=== PATIENT | female | born 1990 | race African-American/Black ===

== ENCOUNTER 2019-02-11 09:14 | Emergency (ER) | payer OTHER ==
[2019-02-11] MEDS ORDERED: LORazepam 2 MG/ML VIAL ONE (09:23)
[2019-02-11] MEDS ORDERED: KETAMINE HCL 500 MG/5 ML VIAL ONE (09:27)
[2019-02-11 10:01] LABS: Absolute Lymphocytes (CBC) 3.1 K/uL (0.7-4.9); Basophils % 0.3 % (0-1.3); Hematocrit 39.1 % (36.0-45.0); MPV 7.8 fL (7.6-11.3)
[2019-02-11 10:05] LABS: Protime INR 1.1
[2019-02-11 10:35] LABS: ALT/SGPT 13 U/L (12-78); AST/SGOT 12 U/L (15-37); Albumin 4.2 g/dL (3.4-5.0); Alkaline Phosphatase 55 U/L (45-117); BUN Blood Urea Nitrogen 14 mg/dL (7-18); Bicarbonate 23 mmol/L (21-32); Bilirubin Direct 0.2 mg/dL (0-0.2); Bilirubin Total 0.5 mg/dL (0.2-1.0); Glucose Level 89 mg/dL (74-106); Potassium 4.1 mmol/L (3.5-5.1); Sodium Level 148 mmol/L (136-145)
[2019-02-11] MEDS ORDERED: NA CHLORIDE 0.9% 2,000 ML ONE (11:36)
[2019-02-11 11:38] LABS: Urine Blood TRACE (NEG); Urine Glucose NEGATIVE (NEG); Urine Protein 2+ (NEG); Urine Specific Gravity 1.025 (1.005-1.030)
[2019-02-11 11:46] LABS: Barbiturates NEGATIVE (NEGATIVE); Benzodiazepines POSITIVE (NEGATIVE); Cocaine NEGATIVE (NEGATIVE); METHAMPHETAM NEGATIVE (NEGATIVE); Methadone NEGATIVE (NEGATIVE); Opiates NEGATIVE (NEGATIVE); Phencyclidine NEGATIVE (NEGATIVE); THC Cannibis POSITIVE (NEGATIVE)
--- NOTE | 2019-02-11 15:29 | ER ---
Nurse's Notes [facility] Name: Gerardo Bey Age: 28 yrs Sex: Female : 1990 Arrival Date: 02/11/2019 Time: 09:24 Bed 7 Private MD: Diagnosis: Suicidal ideations;Bipolar disorder Presentation: 02/11 09:24 Presenting complaint: EMS states: Pt took handful of Vicodin, boyfriend tried to get jl7 her to throw up but was unable to, pt was combative on scene, given 2 mg Versed IM and 3 mg Versed IVP. 09:24 Transition of care: patient was not received from another setting of care. Onset of jl7 symptoms was February 11, 2019 at 08:15. Risk Assessment: Do you want to hurt yourself or someone else? Patient reports desire/thoughts of hurting themselves or someone else. Provider notified. Initial Sepsis Screen: Does the patient meet any 2 criteria? No. Patient's initial sepsis screen is negative. Does the patient have a suspected source of infection? No. Patient's initial sepsis screen is negative. Care prior to arrival: Restraints applied. Medication(s) given: 5 mg Versed IV initiated. 18 GA, in the left antecubital area, Restraints applied. Care prior to arrival: IV initiated. 20 GA, in the right antecubital area. 09:24 Method Of Arrival: EMS: [place] [id number] 09:24 Acuity: KANDACE 2 jl7 Triage Assessment: 09:24 General: Appears in no apparent distress. Behavior is unresponsive. Pt sedated. Pain: jl7 Unable to use pain scale. Patient is disoriented. Neuro: Level of Consciousness is unresponsive, Oriented to none. Cardiovascular: Patient's skin is warm and dry. Respiratory: Airway is patent Respiratory effort is even, unlabored, Respiratory pattern is regular, symmetrical. Derm: Skin is pink, warm \\T\\ dry. Historical: - Allergies: 09:24 No Known Allergies; jl7 - Home Meds: 09:24 Seroquel Oral [Active]; jl7 - PMHx: 09:24 Bipolar disorder; jl7 - Immunization history:: Adult Immunizations unknown. - Social history:: Smoking status: unknown. - Ebola Screening: : No symptoms or risks identified at this time. Screenin:28 Abuse screen: Denies threats or abuse. Denies injuries from another. Nutritional iw screening: No deficits noted. Tuberculosis screening: No symptoms or risk factors identified. Fall Risk IV access (20 points). Assessment: 09:24 Reassessment: See triage assessment. jl7 09:30 Reassessment: Pt became agitated, trying to slap nurses, security at bedside, INDRA Lu and Dr. Asher at bedside, see [facility] for orders. Pt ripped out right AC IV. 09:45 Reassessment: Pt sedated, VSS, restraints removed, respirations even and unlabored. jl7 10:27 Reassessment: pt opening eyes to name, family at bedside, VSS, respirations even and iw unlabored. 11:00 Reassessment: Pt A\\T\\O x 4, cooperative, family remains at bedside. jl7 12:11 Reassessment: Anelle from Poison control reports to watch respirations and pull a 4 jl7 hour Tylenol at 1230, if level is less than 150 the pt is good to go and greater than [address]. 12:25 Reassessment: Nurse to Nurse with LUCIANA Navarro at [facility], will call back for [facility] doc-to-doc after review. 12:40 Reassessment: [place] [facility] [facility] 13:27 Reassessment: Patient appears in no apparent distress at this time. No changes from jl previously documented assessment. Patient and/or family updated on plan of care and expected duration. Pain level reassessed. Patient is alert, oriented x 3, equal unlabored respirations, skin warm/dry/pink. 14:30 Reassessment: Patient appears in no apparent distress at this time. Patient and/or jl7 family updated on plan of care and expected duration. Pain level reassessed. Patient is alert, oriented x 3, equal unlabored respirations, skin warm/dry/pink. 16:01 Reassessment: Pts family states "She's ready to go home now, she feels better." INDRA Lu at bedside discussing plan of care. Pt's family requests to speak to the ER Doctor. Dr. Asher at bedside and explained the procedures regarding attempted suicide and suicidal ideation, pt and family verbally reports understanding. 18:05 Reassessment: Pt actively vomiting, ERP notified, see MAR for orders. jl7 19:39 Reassessment: Patient appears in no apparent distress at this time. Patient calm, lp1 resting; significant other at bedside. Neuro: Oriented to person, place, time, situation. Cardiovascular: Patient's skin is warm and dry. 21:00 Reassessment: Patient appears in no apparent distress at this time. Patient resitng, lp1 eyes closed. 23:28 Reassessment: Nurse to nurse report given to LUCIANA Allen at [facility]. lp1 02/12 02:11 Reassessment: Patient updated on plan for transfer to [facility]; Patient lp1 refuses to sign consent form for transfer. 02:33 Reassessment: Mental Health officer at bedside for patient transfer. lp1 Psych: 02/11 12:13 Subjective: Patient's mood is sad, Delusions are denied, Hallucinations are auditory, jl7 visual, Having thoughts of suicide. Plan for suicide is Pt attempted to OD with Vicodin. Objective: Patient is cooperative, using poor eye contact, Speech is normal, Affect is appropriate. Interventions: Removed personal items and placed in bag. Patient placed in hospital gown. Searched person for dangerous items. Urine collected and sent for urine drug test. Suicide Risk Assessment: Sad Person Scale: Sex of patient: Female: Score 0 points. Age of patient: Score 1 point if patient 15-34. Depression: Score 1 point if signs of depression are present. Previous Attempt: Score 1 point if patient has previously attempted suicide. Substance Abuse: Score 1 point if patient abuses alcohol or drugs. Rational Thinking: Score 1 point if patient is lacking rational thinking. Social Support: Score 0 if social support is present/available. Organized Plan: Score 1 point if patient had a plan in place. Relationship: Score 0 point if patient has a spouse or domestic partner. Chronic Sickness: Score 1 point if patient has illness, chronic, debilitating, or severe. Safety Checks: Personal items have been removed. Door is open. Visitors are present. Patient uses marijuana. 12:30 Safety Checks: Personal items have been removed. Door is open. Visitors are present. jl7 12:45 Safety Checks: Personal items have been removed. Door is open. Visitors are present. jl7 13:00 Safety Checks: Personal items have been removed. Door is open. Visitors are present. jl7 13:15 Safety Checks: Personal items have been removed. Door is open. Visitors are present. jl7 13:30 Safety Checks: Personal items have been removed. Door is open. Visitors are present. jl7 13:45 Safety Checks: Personal items have been removed. Door is open. Visitors are present. jl7 14:00 Safety Checks: Personal items have been removed. Door is open. Visitors are present. jl7 14:15 Safety Checks: Personal items have been removed. Door is open. Visitors are present. jl7 14:30 Safety Checks: Personal items have been removed. Door is open. Visitors are present. jl7 14:45 Safety Checks: Personal items have been removed. Door is open. Visitors are present. jl7 15:00 Safety Checks: Personal items have been removed. Door is open. Visitors are present. jl7 15:15 Safety Checks: Personal items have been removed. Door is open. Visitors are present. jl7 15:30 Safety Checks: Personal items have been removed. Door is open. Visitors are present. jl7 15:45 Safety Checks: Personal items have been removed. Door is open. Visitors are present. jl7 16:00 Safety Checks: Personal items have been removed. Door is open. Visitors are present. jl7 16:15 Safety Checks: Personal items have been removed. Door is open. Visitors are present. jl7 16:30 Safety Checks: Personal items have been removed. Door is open. Visitors are present. jl7 16:45 Safety Checks: Personal items have been removed. Door is open. Visitors are present. jl7 Overdose: 09:24 Patient took "She took about 8 and I made her throw up right away and she threw up 6 jl7 for sure.". Overdose occurred 30 minutes to 1 hour ago. Vital Signs: 09:35 BP 102 / 35; Pulse 100; Resp 18 S; Pulse Ox 99% on R/A; iw 10:27 BP 118 / 81; Pulse 89; Resp 16; Pulse Ox 100% on R/A; Pain 0/10; iw 12:18 BP 117 / 61; Pulse 75; Resp 16 S; Pulse Ox 100% on R/A; jl7 13:26 BP 99 / 63; Pulse 74; Resp 16 S; Pulse Ox 100% on R/A; jl7 16:45 BP 111 / 67; Pulse 63; Resp 16 S; Pulse Ox 100% on R/A; jl7 19:38 Weight 49.44 kg (R); lp1 20:05 BP 113 / 73 LA Supine (auto/reg); Pulse 85 MON; Resp 18 S; Temp 98.5(O); Pulse Ox 100% ms1 on R/A; 02/12 00:01 BP 100 / 66 LA Supine (auto/reg); Pulse 58 MON; Resp 18 S; Temp 98.5(O); Pulse Ox 99% ms1 on R/A; ED Course: 02/11 09:24 Patient arrived in ED. iw 09:24 Maintain EMS IV. Dressing intact. Good blood return noted. Site clean \\T\\ dry. Gauge \\T\\ jl 7 site: 18 Left AC. 09:24 Arm band placed on right wrist. jl7 09:24 Patient has correct armband on for positive identification. Placed in gown. Bed in low jl7 position. Call light in reach. Side rails up X2. monitoring and evaluation advisor on. Pulse ox on. NIBP on. Warm blanket given. 09:29 David Sams PA is PHCP. cp 09:30 Wilmar Asher MD is Attending Physician. cp 09:40 Lab(s) recollected, by me, sent to lab. Initial lab(s) drawn, by me, sent to lab. jl7 09:40 Urine collected: straight cath specimen, clear. jl7 09:45 Straight cath inserted, using sterile technique, 16 Fr. Specimen obtained. Returned jl7 clear yellow urine. Patient tolerated Pt sedated. 09:58 Randell Sanchez, LUCIANA is Primary Nurse. jl7 10:08 EKG done, by automotive technician. reviewed by David BURRELL. at1 11:06 Triage completed. jl7 12:00 faxed patient records to the following facilities in the attempt to transfer the eb patient; [facility], [facility], [facility], [facility], [facility], [facility], [facility], [facility], [facility], [facility], and [facility] 12:35 connected the Nurse Melanie CHOWDHURY from [facility] with Randell for nurse to nurse report.eb 12:40 connected the nurse Stanley CHOWDHURY from [facility] with Randell for nurse to nurse eb report. 13:15 Chula from [facility] called to decline patient in transfer due to them eb being at capacity. 15:54 Police the [facility] called to page the [facility] on eb call. 16:09 per Amish Lizzie from [facility] patient was declined due to violent eb history. 16:13 Police [place] [employer] called due to patient attempting to leave the eb facility. 16:17 called [facility] to check on the status on the transfer/ per Xiomy if we eb could refax the patient information. She did not receive the original fax. 17:00 Safety checks: Items removed: yes. Door open/sign placed on door: yes. Family/friend dh3 present: yes. Family/friends encouraged to stay with patient. Sitter present: Yes. 17:05 Diet tray ordered. jl7 17:15 Safety checks: Items removed: yes. Door open/sign placed on door: yes. Family/friend dh3 present: yes. Family/friends encouraged to stay with patient. Sitter present: Yes. 17:30 Safety checks: Items removed: yes. Door open/sign placed on door: yes. Family/friend dh3 present: yes. Family/friends encouraged to stay with patient. Sitter present: Yes. 17:45 Safety checks: Items removed: yes. Door open/sign placed on door: yes. Family/friend dh3 present: yes. Family/friends encouraged to stay with patient. Sitter present: Yes. 18:00 Safety checks: Items removed: yes. Door open/sign placed on door: yes. Family/friend dh3 present: yes. Family/friends encouraged to stay with patient. Sitter present: Yes. 18:15 Safety checks: Items removed: yes. Door open/sign placed on door: yes. Family/friend dh3 present: yes. Family/friends encouraged to stay with patient. Sitter present: Yes. 18:30 Safety checks: Items removed: yes. Door open/sign placed on door: yes. Family/friend dh3 present: yes. Family/friends encouraged to stay with patient. Sitter present: Yes. 18:45 Safety checks: Items removed: yes. Door open/sign placed on door: yes. Family/friend dh3 present: yes. Family/friends encouraged to stay with patient. Sitter present: Yes. 19:00 Safety checks: Items removed: yes. Door open/sign placed on door: yes. Family/friend dh3 present: yes. Family/friends encouraged to stay with patient. Sitter present: Yes. 19:15 Safety Checks: Personal items have been removed. The door is open or patient has been ms1 placed in a hallway bed/chair. A family member and/or friend is present and encouraged to stay. Sitter present at this time. 19:30 Safety Checks: Personal items have been removed. The door is open or patient has been ms1 placed in a hallway bed/chair. A family member and/or friend is present and encouraged to stay. Sitter present at this time. 19:34 Primary Nurse role handed off by Randell Sanchez RN jl7 19:38 Emi Valenzuela RN is Primary Nurse. lp1 19:45 Safety Checks: Personal items have been removed. The door is open or patient has been ms1 placed in a hallway bed/chair. A family member and/or friend is present and encouraged to stay. Sitter present at this time. 20:00 Safety Checks: Personal items have been removed. The door is open or patient has been ms1 placed in a hallway bed/chair. A family member and/or friend is present and encouraged to stay. Sitter present at this time. 20:15 Safety Checks: Personal items have been removed. The door is open or patient has been ms1 placed in a hallway bed/chair. A family member and/or friend is present and encouraged to stay. Sitter present at this time. 20:30 Safety Checks: Personal items have been removed. The door is open or patient has been ms1 placed in a hallway bed/chair. A family member and/or friend is present and encouraged to stay. Sitter present at this time. 20:45 Safety Checks: Personal items have been removed. The door is open or patient has been ms1 placed in a hallway bed/chair. A family member and/or friend is present and encouraged to stay. Sitter present at this time. 21:00 Safety Checks: Personal items have been removed. The door is open or patient has been ms1 placed in a hallway bed/chair. A family member and/or friend is present and encouraged to stay. Sitter present at this time. 21:15 Safety Checks: Personal items have been removed. The door is open or patient has been ms1 placed in a hallway bed/chair. A family member and/or friend is present and encouraged to stay. Sitter present at this time. 21:30 Safety Checks: Personal items have been removed. The door is open or patient has been ms1 placed in a hallway bed/chair. A family member and/or friend is present and encouraged to stay. Sitter present at this time. 21:30 Safety Checks: Personal items have been removed. The door is open or patient has been ms1 placed in a hallway bed/chair. There are no family/friend visitors at this time Sitter present at this time. 21:45 Safety Checks: Personal items have been removed. The door is open or patient has been ms1 placed in a hallway bed/chair. A family member and/or friend is present and encouraged to stay. There are no family/friend visitors at this time Sitter present at this time. 22:00 Safety Checks: Personal items have been removed. The door is open or patient has been ms1 placed in a hallway bed/chair. There are no family/friend visitors at this time Sitter present at this time. 22:15 Safety Checks: Personal items have been removed. The door is open or patient has been ms1 placed in a hallway bed/chair. There are no family/friend visitors at this time Sitter present at this time. 22:30 Safety Checks: Personal items have been removed. The door is open or patient has been ms1 placed in a hallway bed/chair. There are no family/friend visitors at this time Sitter present at this time. 22:45 Safety Checks: Personal items have been removed. The door is open or patient has been ms1 placed in a hallway bed/chair. There are no family/friend visitors at this time Sitter present at this time. 22:48 Refaxed patient chart to all psychiatric facilities. mt 23:00 Safety Checks: Personal items have been removed. The door is open or patient has been ms1 placed in a hallway bed/chair. There are no family/friend visitors at this time Sitter present at this time. 23:15 Safety Checks: Personal items have been removed. The door is open or patient has been ms1 placed in a hallway bed/chair. There are no family/friend visitors at this time Sitter present at this time. 23:22 Nurse to hSannen Wilks. hi 23:30 Safety Checks: Personal items have been removed. The door is open or patient has been ms1 placed in a hallway bed/chair. There are no family/friend visitors at this time Sitter present at this time. 23:45 Safety Checks: Personal items have been removed. The door is open or patient has been ms1 placed in a hallway bed/chair. There are no family/friend visitors at this time Sitter present at this time. 23:49 Attending Physician role handed off by Wilmar Asher MD cha 23:49 David Tracey MD is Attending Physician. taye 23:54 Dr to Tiburcio Wilks. hi 02/12 00:00 Safety Checks: Personal items have been removed. The door is open or patient has been ms1 placed in a hallway bed/chair. There are no family/friend visitors at this time Sitter present at this time. 00:15 Safety Checks: Personal items have been removed. The door is open or patient has been ms1 placed in a hallway bed/chair. There are no family/friend visitors at this time Sitter present at this time. 00:30 Safety Checks: Personal items have been removed. The door is open or patient has been ms1 placed in a hallway bed/chair. There are no family/friend visitors at this time Sitter present at this time. 00:45 Safety Checks: Personal items have been removed. The door is open or patient has been ms1 placed in a hallway bed/chair. There are no family/friend visitors at this time Sitter present at this time. 01:00 Safety Checks: Personal items have been removed. The door is open or patient has been ms1 placed in a hallway bed/chair. There are no family/friend visitors at this time Sitter present at this time. 01:15 Safety Checks: Personal items have been removed. The door is open or patient has been ms1 placed in a hallway bed/chair. There are no family/friend visitors at this time Sitter present at this time. 01:30 Safety Checks: Personal items have been removed. The door is open or patient has been ms1 placed in a hallway bed/chair. There are no family/friend visitors at this time Sitter present at this time. 01:45 Safety Checks: Personal items have been removed. The door is open or patient has been ms1 placed in a hallway bed/chair. There are no family/friend visitors at this time Sitter present at this time. 02:00 Safety Checks: Personal items have been removed. The door is open or patient has been ms1 placed in a hallway bed/chair. There are no family/friend visitors at this time Sitter present at this time. 02:15 Safety Checks: Personal items have been removed. The door is open or patient has been ms1 placed in a hallway bed/chair. There are no family/friend visitors at this time Sitter present at this time. 02:33 IV discontinued, No redness/swelling at site. Pressure dressing applied. lp1 02:34 No provider procedures requiring assistance completed. lp1 Administered Medications: 02/11 09:25 Drug: Ativan 2 mg Route: IVP; Site: left antecubital; jl7 09:45 Follow up: Response: No adverse reaction jl7 09:30 Drug: Ketamine 100 mg Route: IVP; Site: left antecubital; jl7 09:45 Follow up: Response: No adverse reaction jl7 12:03 Drug: NS 0.9% 1000 ml Route: IV; Rate: 1 bolus; Site: left antecubital; jl7 17:04 Follow up: IV Status: Completed infusion; IV Intake: 1000ml jl7 12:03 Drug: NS 0.9% 1000 ml Route: IV; Rate: 125 ml/hr; Site: left antecubital; jl7 17:04 Follow up: IV Status: IV converted to saline lock; pt refused jl7 18:06 Drug: Phenergan 25 mg Route: IVP; Site: left antecubital; jl7 18:30 Follow up: Response: No adverse reaction; Nausea is decreased jl7 Intake: 17:04 IV: 1000ml; Total: 1000ml. jl7 Outcome: 15:28 ER care complete, transfer ordered by MD. crowe 02/12 02:34 Condition: stable lp1 Instructed on the need for transfer. 02:44 Transferred [facility]. to other acute care facility: [facility] . lp1 02:45 Patient left the ED. lp1 Signatures: David Tracey MD MD cha Williams, Irene, RN RN Emi Valenzuela RN RN lp1 Suzanne Vera, bait tier EKG Tat1 David Sams PA PA cp Leal, Jahala, RN RN jl7 [place] [id number] Patricia Luis Marchie ar1 Corrections: (The following items were deleted from the chart) 02/11 19:32 09:30 Reassessment: Pt became agitated, trying to slap nurses, security at bedside, INDRA Stanley and Dr. Asher at bedside, see MAR for orders. Pt ripped out right AC IV jl7
--- NOTE | 2019-02-11 15:30 | EDPHYS ---
Physician Documentation [facility] Name: Gerardo Bey Age: 28 yrs Sex: Female : 1990 Arrival Date: 02/11/2019 Time: 09:24 Bed 7 Private MD: ED Physician David Tracey HPI: 02/11 09:30 This 28 yrs old Black Female presents to ER via Unassigned with complaints of Possible cp Overdose. 09:30 The patient presents to the emergency department with a possible overdose, was found cp with a bottle, EMS reports family observed patient taking unknown number of hydrocodone. 09:30 Context: Method: the patient has a confirmed or suspected ingestion, of narcotics, cp Time: approximately 0830, the OD/poisoning occurred at at home, and was witnessed by family, Psychiatric history: the patient has a known psychiatric disorder, schizophrenia. Associated signs and symptoms: Pertinent positives: combativeness. Severity of symptoms: in the emergency department the symptoms have improved mildly. Unable to obtain HPI due to patient is being uncooperative. Historical: - Allergies: 09:24 No Known Allergies; jl7 - Home Meds: 09:24 Seroquel Oral [Active]; jl7 - PMHx: 09:24 Bipolar disorder; jl7 - Immunization history:: Adult Immunizations unknown. - Social history:: Smoking status: unknown. - Ebola Screening: : No symptoms or risks identified at this time. ROS: 09:35 Unable to obtain ROS due to patient being uncooperative. cp Exam: 09:40 Constitutional: The patient appears in no acute distress, alert, awake, non-toxic, well cp developed, well nourished. 09:40 Head/Face: Normocephalic, atraumatic. cp 09:40 Eyes: Periorbital structures: appear normal, Pupils: equal, round, and reactive to cp light and accomodation, Sclera: no appreciated abnormality, Lids and lashes: appear normal, bilaterally. 09:40 ENT: External ear(s): are unremarkable, Nose: is normal, Mouth: Lips: moist, Oral mucosa: moist, Posterior pharynx: Airway: no evidence of obstruction, patent. 09:40 Chest/axilla: Inspection: normal. 09:40 Cardiovascular: Rate: tachycardic, Rhythm: regular, JVD: is not appreciated. 09:40 Respiratory: the patient does not display signs of respiratory distress, Respirations: cp normal, no use of accessory muscles, no retractions, no splinting, no tachypnea, labored breathing, is not present, Breath sounds: are clear throughout, no decreased breath sounds, no stridor, no wheezing. 09:40 Abdomen/GI: Inspection: abdomen appears normal, Palpation: abdomen is soft and non-tender, in all quadrants. 09:40 Skin: no rash present. 09:40 Neuro: Orientation: to person, place \T\ time. Motor: moves all fours, strength is normal. 09:40 Psych: Behavior/mood is aggressive, uncooperative, Affect is animated, Patient having thoughts of suicide. Plan for suicide is ingestive unknown number of hydrocodone tablets Delusions/hallucinations are not present. 10:10 ECG was reviewed by the Attending Physician. Vital Signs: 09:35 BP 102 / 35; Pulse 100; Resp 18 S; Pulse Ox 99% on R/A; iw 10:27 BP 118 / 81; Pulse 89; Resp 16; Pulse Ox 100% on R/A; Pain 0/10; iw 12:18 BP 117 / 61; Pulse 75; Resp 16 S; Pulse Ox 100% on R/A; jl7 13:26 BP 99 / 63; Pulse 74; Resp 16 S; Pulse Ox 100% on R/A; jl7 16:45 BP 111 / 67; Pulse 63; Resp 16 S; Pulse Ox 100% on R/A; jl7 19:38 Weight 49.44 kg (R); lp1 20:05 BP 113 / 73 LA Supine (auto/reg); Pulse 85 MON; Resp 18 S; Temp 98.5(O); Pulse Ox 100% ms1 on R/A; 02/12 00:01 BP 100 / 66 LA Supine (auto/reg); Pulse 58 MON; Resp 18 S; Temp 98.5(O); Pulse Ox 99% ms1 on R/A; MDM: 02/11 09:32 Patient medically screened. 14:10 Data reviewed: vital signs, nurses notes, lab test result(s), EKG, I have discussed the cp patient's presentation/case with the attending Emergency Department Physician;. 23:53 Patient medically screened. [facility] 02/11 09:31 Order name: Acetaminophen; Complete Time: 11:21 cp 02/11 11:21 Interpretation: Reviewed. cp 02/11 09:31 Order name: Basic Metabolic Panel; Complete Time: 11:21 cp 02/11 11:21 Interpretation: Normal except: NA 148; CL 113; GFR 85. cp 02/11 09:31 Order name: CBC with Diff; Complete Time: 11:21 cp 02/11 09:31 Order name: ETOH Level; Complete Time: 11:21 cp 02/11 09:31 Order name: Hepatic Function; Complete Time: 11:21 cp 02/11 09:31 Order name: PT-INR; Complete Time: 11:21 cp 02/11 09:31 Order name: Ptt, Activated; Complete Time: 11:21 cp 02/11 09:31 Order name: Salicylate; Complete Time: 11:21 cp 02/11 09:31 Order name: Urine Drug Screen; Complete Time: 11:56 cp 02/11 11:56 Interpretation: Normal except: BZO POSITIVE; THC POSITIVE. cp 02/11 09:31 Order name: Test, Serum; Complete Time: 11:21 cp 02/11 11:19 Order name: Urine Dipstick--Ancillary (enter results); Complete Time: 11:56 eb 02/11 11:56 Interpretation: Normal except: UKET 2+; UBLD TRACE; UPROT 2+. cp 02/11 12:51 Order name: Acetaminophen; Complete Time: 14:02 cp 02/11 14:02 Interpretation: Reviewed. cp 02/11 09:31 Order name: EKG; Complete Time: 09:33 cp 02/11 09:31 Order name: EKG - Nurse/Tech; Complete Time: 11:15 cp 02/11 09:31 Order name: IV Saline Lock; Complete Time: 11:14 cp 02/11 09:31 Order name: Labs collected and sent; Complete Time: 11:14 cp 02/11 09:31 Order name: Urine Dipstick-Ancillary (obtain specimen); Complete Time: 11:14 cp 02/11 17:05 Order name: Diet Finger Food; Complete Time: 17:06 jl7 EC:10 Rate is 99 beats/min. Rhythm is regular. DE interval is normal. QRS interval is normal. cp QT interval is prolonged at 370 msec. T waves are Inverted in leads V3, V4. Interpreted by me. Reviewed by me. Administered Medications: 09:25 Drug: Ativan 2 mg Route: IVP; Site: left antecubital; jl7 09:45 Follow up: Response: No adverse reaction jl7 09:30 Drug: Ketamine 100 mg Route: IVP; Site: left antecubital; jl7 09:45 Follow up: Response: No adverse reaction jl7 12:03 Drug: NS 0.9% 1000 ml Route: IV; Rate: 1 bolus; Site: left antecubital; jl7 17:04 Follow up: IV Status: Completed infusion; IV Intake: 1000ml 7 12:03 Drug: NS 0.9% 1000 ml Route: IV; Rate: 125 ml/hr; Site: left antecubital; jl7 17:04 Follow up: IV Status: IV converted to saline lock; pt refused jl7 18:06 Drug: Phenergan 25 mg Route: IVP; Site: left antecubital; jl7 18:30 Follow up: Response: No adverse reaction; Nausea is decreased jl7 Disposition: 15:32 Chart complete. 23:52 Co-signature as Attending Physician, David Tracey MD I agree with the assessment and taye plan of care. Disposition: 02/11/19 15:28 Transfer ordered to Psych Facility. Diagnosis are Suicidal ideations, Bipolar disorder. - Reason for transfer: Higher level of care. - Accepting physician is psych facility. - Condition is Stable. - Problem is new. - Symptoms have improved. Signatures: Dispatcher [employer] David Liriano MD MD cha Pena, Laura, RN RN lp1 David Sams PA PA cp Leal, Jahala RN RN jl7 Corrections: (The following items were deleted from the chart) 23:52 15:28 02/11/2019 15:28 Transfer ordered to Psych Facility. Diagnosis is Suicidal taye ideations. Reason for transfer: Higher level of care. Accepting physician is psych facility. Condition is Stable. Problem is new. Symptoms have improved. 02/12 02:45 02/11 23:52 02/11/2019 15:28 Transfer ordered to Psych Facility. Diagnosis is Suicidal lp1 ideations; Bipolar disorder. Reason for transfer: Higher level of care. Accepting physician is psych facility. Condition is Stable. Problem is new. Symptoms have improved. taye
--- NOTE | 2019-02-11 15:56 | EKG ---
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
[2019-02-11] MEDS ORDERED: PROMETHAZINE 25 MG/ML VIAL ONE (18:05)
[2019-02-12 02:58] VITALS: TEMP 98.5
[2019-02-12 02:59] VITALS: BP 100/66; O2SAT 99
== END 2019-02-12 02:45 ==
LOC: ER 09:14
DX: R45.851 Suicidal ideations (principal); F31.9 Bipolar disorder, unspecified
CPT/HCPCS: 96361; 93005; 85025; 80048; 36415; 80320; 80329 ×3; 84703; 85610; 80076; 80307 ×8; 85730; 81003; 51702; 96375; 96374; 99285; J2550; J7030